=== PATIENT | male | born 1985 | race Caucasian/White ===

== ENCOUNTER 2019-04-14 18:49 | Emergency (ER) | payer SELFPAY ==
[2019-04-14] MEDS ORDERED: Ketorolac 60 MG/2 ML SDV IM ONE (19:14)
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
--- NOTE | 2019-04-14 19:46 | CR ---
HISTORY: Back pain. TECHNIQUE: Three views of the lumbar spine. COMPARISON: No prior. FINDINGS: There is no lumbar fracture or lumbar malalignment. Vertebral body height is maintained. The intervertebral disc height is maintained. Sacroiliac joints are maintained. IMPRESSION: No fracture or malalignment. Dictated by Broderick Canela MD @ 04/14/2019 7:45:32 PM Dictated by: Broderick Canela MD @ 04/14/2019 19:45:36 (Electronically Signed)
[2019-04-14 20:01] VITALS: BP 123/61; PULSE 71
== END 2019-04-14 20:11 | disposition home or self-care (01) ==
LOC: MW.ED 18:49
DX: M54.5 Low back pain (principal); F17.210 Nicotine dependence, cigarettes, uncomplicated
CPT/HCPCS: 72100; 80305; 81003; 96372; 99284; J1885